=== PATIENT | male | born 1995 | race Caucasian/White ===

== ENCOUNTER 2017-03-03 11:28 | Emergency (ER) | payer SELFPAY ==
[2017-03-03 12:12] VITALS: BP 96/57
--- NOTE | 2017-03-03 12:19 | UC ---
Throat Pain/Nasal [place]onte HPI - HPI Summary HPI Summary: ST, nasal congestion, minimal cough and chest tightness starting 2 days ago. Others in his house have been sick. no fevers or rash. - History of Current Complaint Hx Obtained From: Patient Onset/Duration: Gradual Onset, Lasting Days Severity: Mild Cough: Nonproductive Associated Signs & Symptoms: Positive: Wheezing, Nasal Discharge. Negative: Fever, Vomiting, Rash <Louise Gallardo - Last Filed: 03/03/17 12:13> <Margaux Mcmahon - Last Filed: 03/03/17 13:31> - History of Current Complaint Chief Complaint: UCRespiratory Stated Complaint: CHEST CONGESTION Time Seen by Provider: 03/03/17 12:13 - Allergies/Home Medications Allergies/Adverse Reactions: Allergies Allergy/AdvReac Type Severity Reaction Status Date / Time No Known Allergies Allergy Verified 03/03/17 12:11 PMH/Surg Hx/FS Hx/Imm Hx Previously Healthy: Yes - Surgical History Surgical History: None - Family History Known Family History: Positive: None - Social History Occupation: Employed Full-time Lives: With Family Alcohol Use: None Substance Use Type: None Smoking Status (MU): Current Every Day Smoker Type: Cigarettes Amount Used/How Often: 1/2 ppd Length of Time of Smoking/Using Tobacco: 5 years Have You Smoked in the Last Year: Yes Cessation Counseling: Patient Advised to Stop <Louise Gallardo - Last Filed: 03/03/17 12:13> Review of Systems Constitutional: Negative Skin: Negative Eyes: Negative ENT: Sore Throat, Nasal Discharge Respiratory: Cough Cardiovascular: Negative Gastrointestinal: Negative Genitourinary: Negative Motor: Negative Neurovascular: Negative Musculoskeletal: Negative Neurological: Negative Psychological: Negative Is Patient Immunocompromised?: No All Other Systems Reviewed And Are Negative: Yes <Louise Gallardo - Last Filed: 03/03/17 12:13> Physical Exam Triage Information Reviewed: Yes Appearance: Well-Appearing, No Pain Distress, Well-Nourished Vital Signs: Initial Vital Signs Temp 98.5 F 03/03/17 12:05 Pulse 90 03/03/17 12:05 Resp 18 03/03/17 12:05 BP 96/57 03/03/17 12:05 Pulse Ox 100 03/03/17 12:05 Vital Signs Reviewed: Yes Eye Exam: Normal Eyes: Positive: Conjunctiva Clear ENT: Positive: Hearing grossly normal, Pharynx normal, Nasal congestion, TMs normal. Negative: Tonsillar swelling, Tonsillar exudate Neck exam: Normal Neck: Positive: Supple, Nontender, No Lymphadenopathy Respiratory Exam: Normal Respiratory: Positive: Chest non-tender, Lungs clear, Normal breath sounds, No respiratory distress, No accessory muscle use Cardiovascular Exam: Normal Cardiovascular: Positive: RRR, No Murmur Musculoskeletal Exam: Normal Neurological Exam: Normal Neurological: Positive: Alert Psychological Exam: Normal Skin Exam: Normal <Louise Gallardo - Last Filed: 03/03/17 12:13> Vital Signs: Initial Vital Signs Temp 98.5 F 03/03/17 12:05 Pulse 90 03/03/17 12:05 Resp 18 03/03/17 12:05 BP 96/57 03/03/17 12:05 Pulse Ox 100 03/03/17 12:05 <Margaux Mcmahon - Last Filed: 03/03/17 13:31> Throat Pain/Nasal Course/Dx - Differential Dx/Diagnosis Provider Diagnoses: URI, likely viral <Louise Gallardo - Last Filed: 03/03/17 12:13> Discharge <Louise Gallardo - Last Filed: 03/03/17 12:13> <Margaux Mcmahon - Last Filed: 03/03/17 13:31> - Discharge Plan Condition: Stable Disposition: HOME Patient Education Materials: Upper Respiratory Infection (ED) Forms: *Work Release Referrals: No Primary Care Phys,NOPCP [Primary Care Provider] - Attestation Statement User Type: Provider - I was available for consult. This patient was seen by the AUGIE. The patient was not presented to, seen by, or examined by me. -Radha <Margaux Mcmahon - Last Filed: 03/03/17 13:31>
== END 2017-03-03 12:55 | disposition home or self-care (01) ==
LOC: UCEAST 11:28
DX: J06.9 Acute upper respiratory infection, unspecified (principal); F17.210 Nicotine dependence, cigarettes, uncomplicated
CPT/HCPCS: 99211; G0463

== ENCOUNTER 2017-03-17 19:35 | Emergency (ER) | payer SELFPAY ==
[2017-03-17 19:54] VITALS: BP 128/66
[2017-03-17] MEDS ORDERED: HYDROcodone/ACETAMIN 5-325 MG* 1 TAB PO ONE ×2 (21:21→21:22)
[2017-03-17] MEDS ORDERED: Amoxicillin/Clavulanate TAB* 875 MG PO ONE ×2 (21:22)
--- NOTE | 2017-03-17 22:03 | UC ---
Dental HPI - HPI Summary HPI Summary: Patient presents to the with CC of right lower molar pain with radiation to the ear. He states the pain was intermittent x 2 days, but now has remained constant with no improvement with 800mg ibuprofen and ice. Denies trauma. Denies previous dental or ear infections. The pain was sudden in onset, a 8/10 , remained constant x 2 days without erythema or drainage. Denies fevers, sweats or chills. Patient is a smoker. He is otherwise healthy and takes no medications. Denies trismus, drooling or dysphagia. Denies airway compromise or SOB. Denies ear pain, eye pain, blurry vision or double vision. Pain is worse with chewing and cold drinks. Patient denies dental care for several years. Several crowding teeth and broken teeth throughout. - History of Current Complaint Hx Obtained From: Patient Onset/Duration: Sudden Onset Severity: Moderate Pain Intensity: 8 Pain Scale Used: 0-10 Numeric Aggravating Factor(s): Chewing Alleviating Factor(s): Other (see comments) - cold <Isabella Gottlieb - Last Filed: 03/17/17 21:57> <Margaux Mcmahon - Last Filed: 03/17/17 22:51> - History of Current Complaint Chief Complaint: UCDentalProblem Stated Complaint: TOOTH COMPLAINT Time Seen by Provider: 03/17/17 20:53 - Allergies/Home Medications Allergies/Adverse Reactions: Allergies Allergy/AdvReac Type Severity Reaction Status Date / Time No Known Allergies Allergy Verified 03/17/17 19:54 Home Medications: Home Medications Ibuprofen [Ibuprofen 200 MG] 200 mg PO ONCE PRN 03/17/17 [History Confirmed 08/02] PMH/Surg Hx/FS Hx/Imm Hx Previously Healthy: Yes - Surgical History Surgical History: None - Family History Known Family History: Positive: None - Social History Occupation: Employed Part-time Lives: With Family Alcohol Use: Occasionally Substance Use Type: None Smoking Status (MU): Heavy Every Day Tobacco Smoker Type: Cigarettes Amount Used/How Often: 1/2 ppd Length of Time of Smoking/Using Tobacco: 5 years Have You Smoked in the Last Year: Yes <Isabella Gottlieb - Last Filed: 03/17/17 21:57> Review of Systems Constitutional: Negative Skin: Negative ENT: Dental Pain - right mandible Respiratory: Negative Cardiovascular: Negative Motor: Negative Neurovascular: Negative Neurological: Negative Psychological: Negative Is Patient Immunocompromised?: No All Other Systems Reviewed And Are Negative: Yes <Isabella Gottlieb - Last Filed: 03/17/17 21:57> Physical Exam Triage Information Reviewed: Yes Appearance: Well-Appearing, Well-Nourished Vital Signs: Initial Vital Signs Temp 98.8 F 03/17/17 19:51 Pulse 102 03/17/17 19:51 Resp 16 03/17/17 19:51 BP 128/66 03/17/17 19:51 Pulse Ox 100 03/17/17 19:51 Vital Signs Reviewed: Yes Eye Exam: Normal Eyes: Positive: Conjunctiva Clear ENT: Positive: Pharynx normal Dental: Positive: Percussion Tenderness @ - right mandible, Gross Decay/Caries @ - throughout, Dental Fracture @ - right molar Neck exam: Normal Neck: Positive: Supple, No Lymphadenopathy Cardiovascular Exam: Normal Cardiovascular: Positive: RRR Musculoskeletal: Positive: Strength Intact Neurological Exam: Normal Neurological: Positive: Alert Psychological Exam: Normal Psychological: Positive: Normal Response To Family Skin Exam: Normal <Isabella Gottlieb - Last Filed: 03/17/17 21:57> Vital Signs: Initial Vital Signs Temp 98.8 F 03/17/17 19:51 Pulse 102 03/17/17 19:51 Resp 16 03/17/17 19:51 BP 128/66 03/17/17 19:51 Pulse Ox 100 03/17/17 19:51 <Margaux Mcmahon - Last Filed: 03/17/17 22:51> Dental Complaint Course/Dx - Course Course Of Treatment: Patient evaluated for right sided lower dental pain. Denies erythema, drainage. He notes to radiation of pain to the right ear. Denies hearing loss, tinnitis or drainage. Denies previous dental work on the same tooth. No dental abscess or lesions seen over area of concern. Erythema at site of pain. No drainage from area. Several dental caries, cavities, crowding and broken teeth throughout. Pain on palpation over mandible. No TMJ tenderness. No pain with opening and closing mouth. Poor dental hygiene and outpatient dental care. Will treat for possible dental infection/abscess based on symptoms of pain and radiation to jaw and ear. No allergies. Will treat with Augmentin. Patient to follow up immediately with dentist. He is give oxycodone for pain control. - Differential Dx/Diagnosis Differential Diagnosis/Dx: Dental Abscess, Dental Caries, Fractured Tooth, Odontogenic Pain Provider Diagnoses: Dental Pain <Isabella Gottlieb - Last Filed: 03/17/17 21:57> Discharge <Isabella Gottlieb - Last Filed: 03/17/17 21:57> <Margaux Mcmahon - Last Filed: 03/17/17 22:51> - Discharge Plan Condition: Stable Disposition: HOME Prescriptions: Amoxicillin/Clavulanate TAB* [Augmentin TAB 875*] 875 mg PO BID #10 tab Hydrocodone-Acetaminophen [Hydrocodone/Acetaminophen 10-325 mg] 1 tab PO Q6H # 12 tab MDD 4 Patient Education Materials: Toothache (ED), Gingivostomatitis (ED) Forms: *Work Release Referrals: No Primary Care Phys,NOPCP [Primary Care Provider] - Additional Instructions: You have been diagnosed with dental pain with possible infection: Antibiotics as prescribed to you. Take Augmentin twice daily for 5 days (6 total starting tonight) Hydrocodone 10mg - take up to four per day To minimize the potential for gastrointestinal intolerance, Pencillin should be taken at the start of a meal. If you have any questions about your medication, please contact us or ask your pharmacist. Salt water rinses several times per day will improve healing time. Ibuprofen 600mg three times daily with meals for discomfort. May use ambesol over the area for comfort. Clove oil will help as well Follow up with a dentist for routine care to prevent recurrence of infections. If fever, worsening pain or swelling develops, see your PCP, dentist or come back to the Emergency Department. Images Dental: 1 - location of pain and several dental caries - no erythem noted. <Isabella Gottlieb - Last Filed: 03/17/17 21:57> Attestation Statement User Type: Provider - I was available for consult. This patient was seen by the AUGIE. The patient was not presented to, seen by, or examined by me. -Radha <Margaux Mcmahon - Last Filed: 03/17/17 22:51>
== END 2017-03-17 21:50 | disposition home or self-care (01) ==
LOC: UCEAST 19:35
DX: K08.89 Other specified disorders of teeth and supporting structures (principal); F17.210 Nicotine dependence, cigarettes, uncomplicated
CPT/HCPCS: 99213; A9270-GY; G0463

== ENCOUNTER 2018-12-15 08:46 | Emergency (ER) | payer SELFPAY ==
[2018-12-15 08:57] VITALS: BP 109/59
--- NOTE | 2018-12-15 09:29 | UC ---
Shoulder Pain HPI - HPI Summary HPI Summary: Pt presents to with complaints right upper back/neck pain since yesterday morning. Pt states he woke with discomfort- thinks "slept wrong." Pt took Motrin yesterday - none today. Has applied ice Pain better at rest, worse with movement. No Upper extremity weakness, paresthesia. no direct trauma. Pt works at [employer] and has to move heavy bags over head - called in to work today. No fever, chills, rash no nnp, sob, abd pain No n/v/d. 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 Severity Initially: Moderate Severity Currently: Moderate Location Of Pain: Is Discrete @ - right upper back Pain Intensity: 8 - Allergies/Home Medications Allergies/Adverse Reactions: Allergies Allergy/AdvReac Type Severity Reaction Status Date / Time No Known Allergies Allergy Verified 12/15/18 08:57 PMH/Surg Hx/FS Hx/Imm Hx Previously Healthy: Yes - Surgical History Surgical History: None - Family History Known Family History: Positive: Non-Contributory - Social History Occupation: Employed Full-time Lives: With Family Alcohol Use: Occasionally Substance Use Type: Marijuana Smoking Status (MU): Heavy Every Day Tobacco Smoker Type: Cigarettes Amount Used/How Often: 1/2 ppd Length of Time of Smoking/Using Tobacco: 5 years Have You Smoked in the Last Year: Yes Review of Systems All Other Systems Reviewed And Are Negative: Yes Musculoskeletal: Positive: Other: - back pain, right posterior shoulder pain Is Patient Immunocompromised?: No Physical Exam - Summary Physical Exam Summary: Vital Signs Reviewed: Yes A+Ox3, mild discomfort with movement Eyes: Conjunctiva Clear, PATRICK. EOM intact and full ENT: Hearing grossly normal TM x 2 clear, mmoist, uvula midline, no exudate, no erythema Neck: Positive: Supple Respiratory: Positive: No respiratory distress, No accessory muscle use + CTA throughout no w/r Cardiovascular: RRR nl s1, s2 no m/r CBT <2 sec abd soft + BS nt/nd no guarding, no distensio MS: No spinous process pain c/t/l/s Full AROM c s pine + TTP right trapezius Pain increases with direct palpation of trapezius and paraspinal muscles + full abduct with resistance + fle/ext elbow/wrist + pronate/supinate Neurological: Positive: Alert, + sensation throughout + grasp + thumb up, a ok , finger spread, finger cross 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 Skin: Positive: no rash, no ecchymosis Triage Information Reviewed: Yes Vital Signs: Initial Vital Signs Temp 98 F 12/15/18 08:54 Pulse 72 12/15/18 08:54 Resp 16 12/15/18 08:54 BP 109/59 12/15/18 08:54 Pulse Ox 100 12/15/18 08:54 Shoulder Course/Dx - Course Course Of Treatment: Pt presents to with pain right trapezius muslce, palpable spasm vss distal CMS intact and full Pt delcined Toradol motrin/apap heat stretch flexeril with precautions work note strict return preautions pt comfortable agreement with plan - Differential Dx/Diagnosis Provider Diagnosis: Strain of right trapezius muscle Discharge - Sign-Out/Discharge Documenting (check all that apply): Patient Departure All imaging exams completed and their final reports reviewed: No Studies - Discharge Plan Condition: Stable Disposition: HOME Prescriptions: Cyclobenzaprine TAB* [Flexeril 10 MG TAB*] 5 mg PO Q8HR PRN #10 tab PRN Reason: muscle spasm Patient Education Materials: Muscle Spasm (ED) Print Language: ARMENIAN Forms: *Gen. Provider Communication, *Work Release Referrals: [facility] [Outside] No Primary Care Phys,NOPCP [Primary Care Provider] - Additional Instructions: - Okay to alternate ibuprofen (Advil, Motrin) 600mg and Tylenol every 3hours as needed for pain. Take with food. Do NOT take for more than 4-5 days. -Take flexeril - muscle relaxer as prescribed - this medication causes drowsiness - do not drive, operate machinery or drink alcohol while taking -Apply moist heat to your back for 20 minutes at a time, 4-5 times a day. Once your muscles are warm, slow gentle stretching exercises are important -Contact your doctor today to arrange a follow-up appointment next week. -If you pain is uncontrolled - go to an emergency department for further treatment - Billing Disposition and Condition Condition: STABLE Disposition: Home
== END 2018-12-15 09:59 | disposition home or self-care (01) ==
LOC: UCEAST 08:46
DX: T14.8XXA Other injury of unspecified body region, initial encounter (principal); X58.XXXA Exposure to other specified factors, initial encounter; Y92.9 Unspecified place or not applicable; F17.210 Nicotine dependence, cigarettes, uncomplicated
CPT/HCPCS: 99213; G0463

== ENCOUNTER 2019-04-16 13:23 | Emergency (ER) | payer SELFPAY ==
[2019-04-16 13:35] VITALS: BP 129/72
== END 2019-04-16 13:45 | disposition left against medical advice (07) ==
LOC: ED 13:23
DX: Z53.21 Procedure and treatment not carried out due to patient leaving prior to being seen by health care provider (principal); R22.0 Localized swelling, mass and lump, head
CPT/HCPCS: 99281